=== PATIENT | female | born 1965 | race Caucasian/White ===

== ENCOUNTER 2017-03-01 23:44 | Emergency (ER) | payer BC, OTHER ==
[~2017-03-01] VITALS: Ht 162.6 cm; Wt 63.0 kg
[~2017-03-01 23:44] MED LIST: OXYC-281
[2017-03-01 23:56] VITALS: Ht 162.6 cm; Wt 63.0 kg
[2017-03-02 04:28] VITALS: BP 143/86; PULSE 70; RESP 18
[2017-03-02 05:50] LABS: URINE BLOOD (Dip) POC Negative (NEGATIVE)
[2017-03-02] MEDS ORDERED: IBUPROFEN 200 MG TAB PO ONE (06:00)
--- NOTE | 2017-03-02 07:11 | ERD ---
ER Documentation Chief Complaint Date/Time DATE: 03/02/17 TIME: 07:01 Chief Complaint R FLANK PAIN AND DYSURIA X 3 DAYS HPI This 51-year-old female presents to emergency department today complaining of dysuria, urgency, and frequency of urination with right flank pain patient reports she has been symptomatic for the last 3 days. States pain is sharp and stabbing, symptoms worsened today pain is 9/10 on pain scale. Patient has been taking [id number] Azo with minimal relief of symptoms. Patient denies nausea, vomiting, fever, chills. ROS All systems reviewed and are negative except as per history of present illness. Medications Home Meds Reported Medications Oxycodone Hcl-Acetaminophen* (Percocet*) 1 Tab Tablet, PRN 07/22/12 Allergies Allergies: Coded Allergies: No Known Allergy (Verified , 07/22/12) PMhx/Soc History of Surgery: Yes (, WHIT) Hx Miscellaneous Medical Probl: No (DENIES PMH) Hx Alcohol Use: No Hx Substance Use: No Hx Tobacco Use: No Smoking Status: Never smoker Physical Exam Vitals Vital Signs Date Time Temp Pulse Resp B/P Pulse Ox O2 Delivery O2 Flow Rate FiO2 03/02/17 04:28 70 18 143/86 98 Room Air 03/01/17 23:56 97.0 67 18 188/102 99 Vitals stable, triage notes reviewed Physical Exam Const: No acute distress Head: Atraumatic Eyes: Normal Conjunctiva, PERRLA, EOMI ENT: Normal External Ears, Nose and Mouth., Mucous membranes moist Neck: Resp: Cardio: Abd: Abdomen soft, nondistended, tympanic to percussion ,pelvic tenderness, negative CVA tenderness Skin: Back: No midline or flank tenderness Ext: Neur: Awake and alert Psych: Normal Mood and Affect Results 24 hrs Laboratory Tests Test 03/02/17 05:52 Bedside Urine pH (LAB) 5.0 Bedside Urine Protein (LAB) Trace Bedside Urine Glucose (UA) 0.1% Bedside Urine Ketones (LAB) Negative Bedside Urine Blood Negative Bedside Urine Nitrite (LAB) Positive Bedside Urine Leukocyte Esterase (L Negative Current Medications Medications (Trade) Dose Ordered Sig/Denys Route PRN Reason Start Time Stop Time Status Last Admin Dose Admin Ibuprofen (Motrin) 400 mg ONCE ONCE PO 03/02/17 06:00 03/02/17 06:01 DC 03/02/17 05:58 Urinalysis nitrates positive suggestive of urinary tract infection, no leukocytosis or microscopic hematuria. Procedures/MDM This pleasant 51-year-old female presents with dysuria, urgency and frequency of urination 3 days. Patient currently is taking Pyridium with minimal relief of symptoms, patient reports pain worse in the last 24 hours. Pyelonephritis not suspected without fever, urinary tract infection suspected, urinalysis positive for nitrates suggestive of infection, patient will be treated with Keflex 1 tab p.o. 3 times daily 7 days, increase fluids, increase rest, return to emergency department for worsening of symptoms, nausea vomiting fever chills. I feel the patient is stable for discharge and outpatient management by primary care physician. I have discussed results, examination findings, the treatment plan with the patient and family present prior to discharge. Indications for emergent reevaluation, side effects of medication were also discussed. All questions were answered. Patient verbalizes understanding and agrees with plan of care. Departure Diagnosis: Primary Impression: UTI (urinary tract infection) Urinary tract infection type: site unspecified Hematuria presence: without hematuria Qualified Code: N39.0 - Urinary tract infection without hematuria, site unspecified Condition: Good Patient Instructions: Understanding Urinary Tract Infections (UTIs) Additional Instructions: Thank you for for coming to [facility] for your care today. Please ask your nurse or provider if you have questions about your care today and do not leave until all your questions have been answered. Please use any medications given as directed and follow-up with your doctor (or the doctor you were referred to) in the next 2-3 days. If you do not have a primary care doctor you may follow up at the [facility] (listed below). You may also use motrin and tylenol as needed for fever and/or pain unless instructed otherwise by your provider or nurse. Indications for more urgent follow-up have been discussed, but you may return to the Emergency Department at ANY time for any worrisome or worsening symptoms. If you have abdominal pain, please know that no test or exam you received is perfect and you should follow up within 8 hours for continued pain. If you had any imaging studies today, such as an X-Ray or CT Scan, these studies will be reviewed later by a radiologist. You will be called if there are important findings that were not identified today, so make sure the contact information you provided at registration is correct. If you received any narcotic pain control medicine today, such as Vicodin, Morphine or Dilaudid, your coordination and judgment may be affected for a number of hours. Please do not drive or operate heavy machinery, and you may want someone to assist you at home. If you were given a prescription for narcotic medication, be aware that it is very addictive- use sparingly and only if necessary. ANGELA BERKOWITZ March 02, 2017 07:11
[2017-03-02] MEDS ORDERED: CEPH-443 PO (07:12)
[2017-03-02] MEDS ORDERED: IBUP400T22 PO (07:24)
== END 2017-03-02 07:23 | disposition home or self-care (01) ==
LOC: FTE 23:44
DX: N39.0 Urinary tract infection, site not specified (principal); R10.2 Pelvic and perineal pain
CPT/HCPCS: 81003; Z7502; Z7610; 99283